=== PATIENT | female | born 1980 | race African-American/Black ===

== ENCOUNTER 2021-07-19 17:41 | Emergency (ER) | payer SELFPAY ==
[~2021-07-19] VITALS: Ht 165.1 cm; Wt 104.0 kg
[2021-07-19] MEDS ORDERED: ONDANSETRON HCL 4MG/2ML INJ IV STA (18:53)
[2021-07-19] MEDS ORDERED: SODIUM CHLORIDE 0.9% 1,000 ML IV ONE (19:00)
[2021-07-19 19:40] LABS: CHLORIDE 107 mEq/L (98-107)
[2021-07-19 19:50] LABS: HEMATOCRIT. 38.9 % (36.0-48.0); HEMOGLOBIN. 12.8 g/dL (12.0-16.0); MEAN CORPUSCULAR HEMOGLOBIN 28.5 pg (28.0-32.0); MEAN CORPUSCULAR VOLUME 86.9 fL (81.0-99.0); MEAN PLATELET VOLUME 8.8 fl (7.4-10.4); PLATELET 283 x1000/uL (130-400); RED BLOOD CELL COUNT 4.48 mill/uL (4.2-5.4)
[2021-07-19 20:21] LABS: PLATELET ESTIMATE NORMAL
[2021-07-19] MEDS ORDERED: METOCLOPRAMIDE HCL 10MG/2ML VIAL IV ONE (22:00)
[2021-07-19 22:07] LABS: CLARITY URINE CLEAR (CLEAR); COLOR URINE YELLOW (YELLOW); KETONES URINE 4+ (NEGATIVE); LEUKOCYTE ESTERASE URINE NEGATIVE (NEGATIVE); NITRITE URINE NEGATIVE (NEGATIVE); OCCULT BLOOD URINE NEGATIVE (NEGATIVE); PROTEIN URINE TRACE (NEGATIVE)
[2021-07-19] MEDS ORDERED: ONDA4TAB5 MT (22:59)
[2021-07-19 23:08] VITALS: BP 154/77
== END 2021-07-19 23:10 | disposition home or self-care (01) ==
LOC: ER 17:41
DX: R11.2 Nausea with vomiting, unspecified (principal); Z98.890 Other specified postprocedural states
CPT/HCPCS: 36415; 80053; 81003; 83690; 85025; 96361; 96374; 96375; 99284; J2405; J2765; J7030